=== PATIENT | female | born 1950 | race Two or more races ===

== ENCOUNTER → 2025-03-29 | Emergency (ER) | payer OTHER ==
[~2025-03-29] VITALS: Ht 172.7 cm; Wt 64.9 kg
[~2025-03-29] MED LIST: ATORVASTATIN CA10 MG; BACTROBAN22 GM TP; BIOTIN5 MG; CALTRATE 600+D1 EAC1; CLOBETASOL PROP15 GM; COZAAR100 MG; FENOFIBRATE160 MG; FENOFIBRIC ACID45 MG; GABAPENTIN300 M2; GLIPIZIDE5 MG; GLUCOPHAGE XR500 MG; KETOROLAC TROMETHAMINE 30 MG VIAL IV ONE; KETOROLAC TROMETHAMINE 30 MG VIAL ONE; LEVAQUIN750 MG PO; METHYLPREDNISOLONE SOD SUCC 125 MG VIAL ONE; MONTELUKAST SOD10 MG; NABUMETONE500 MG PO; NORFLEX100MG PO; NORVASC2.5 MG; ORPHENADRINE CITRATE 30 MG/ML AMPUL IV ONE; ORPHENADRINE CITRATE 30 MG/ML AMPUL ONE; OSTERA TABLET1 EACH; OTEZLA30 MG; PANTOPRAZOLE SO40 MG; PREDNISONE10 MG PO; ST. JOSEPH ASPI81 M2; SYNTHROID50 MCG; TENORMIN25 MG; TESSALON PERLE100 MG PO; TRAM1TAB98 PO; TYLENOL ARTHRI650 MG PO
[2025-03-29 13:18] VITALS: BP 169/74; O2SAT 98
== END | disposition home or self-care (01) ==
LOC: ER 12:47
DX: M25.551 Pain in right hip (principal); Z88.2 Allergy status to sulfonamides; Z88.8 Allergy status to other drugs, medicaments and biological substances; Z85.048 Personal history of other malignant neoplasm of rectum, rectosigmoid junction, and anus; E11.9 Type 2 diabetes mellitus without complications; Z79.84 Long term (current) use of oral hypoglycemic drugs; I10 Essential (primary) hypertension; E03.8 Other specified hypothyroidism; M19.90 Unspecified osteoarthritis, unspecified site; Z86.73 Personal history of transient ischemic attack (TIA), and cerebral infarction without residual deficits; L40.8 Other psoriasis; M62.84 Sarcopenia; M54.50 Low back pain, unspecified; M62.830 Muscle spasm of back; M85.80 Other specified disorders of bone density and structure, unspecified site
CPT/HCPCS: 72100; 72170; 73503; 96372; 99283; J1885; J2360